=== PATIENT | female | born 1955 | race Caucasian/White ===

== ENCOUNTER 2018-05-02 11:10 | Emergency (ER) | payer BC ==
[2018-05-02] MEDS ORDERED: NA CHLORIDE 0.9% 1,000 ML ONE (13:01)
[2018-05-02] MEDS ORDERED: MORPHINE 4 MG/ML SYR ONE (13:01)
[2018-05-02] MEDS ORDERED: ONDANSETRON 4 MG/2 ML VIAL ONE (13:01)
[2018-05-02] MEDS ORDERED: KETOROLAC 30 MG/ML INJ ONE (13:18)
[2018-05-02 13:27] LABS: Absolute Lymphocytes (CBC) 3.1 K/uL (0.7-4.9); Absolute Monocytes 0.7 K/uL (0.1-1.3); Absolute Neutrophil 7.9 K/uL (1.8-8.0); Basophils % 0.7 % (0-1.3); Eosinophils % 0.6 % (0-4.4); Hematocrit 46.5 % (36.0-45.0); Lymphocytes % 26.1 % (15.3-44.8); MCH 31.9 pg (27.0-35.0); MCV 92.2 fL (80-100); MPV 7.6 fL (7.6-11.3); Monocytes % 5.5 % (3.3-12.3); RBC Red Blood Cell Count 5.04 M/uL (3.86-4.86)
[2018-05-02 13:58] LABS: ALT/SGPT 29 U/L (12-78); AST/SGOT 20 U/L (15-37); Albumin 4.3 g/dL (3.4-5.0); Alkaline Phosphatase 79 U/L (45-117); Amylase Level 53 U/L (25-115); BUN Blood Urea Nitrogen 21 mg/dL (7-18); Bicarbonate 26 mmol/L (21-32); Bilirubin Direct < 0.1 mg/dL (0-0.2); Bilirubin Total 0.4 mg/dL (0.2-1.0); Glucose Level 106 mg/dL (74-106); Lipase 172 U/L (73-393); Potassium 3.9 mmol/L (3.5-5.1); Protein, Total 7.9 g/dL (6.4-8.2); Sodium Level 141 mmol/L (136-145)
--- NOTE | 2018-05-02 14:18 | RAD REPORT ---
EXAM DESCRIPTION: CT - Stone Protocol - 05/02/2018 1:42 pm CLINICAL HISTORY: Abdominal pain, vaginal pain, bleeding, pain primarily left lower quadrant, prior hysterectomy COMPARISON: None. TECHNIQUE: Axial 5 mm thick images were obtained without oral or IV contrast. The [id number] span s the entirety of the system including uppermost abdomen and lung bases. All CT scans are performed using dose optimization technique as appropriate and may include automated exposure control or mA/KV adjustment according to patient size. FINDINGS: Mild left-sided hydronephrosis is present secondary to a 3 mm stone at the left UVJ. No ot her obstructing or nonobstructing calculi. No right-sided hydronephrosis. No suspicious renal masses. Isodense masses and pyelonephritis are not excluded on a stone protocol CT scan. Partially filled ur inary bladder shows no suspicious finding. Uterus is absent. Ovaries are absent or atrophic. Imaged portions of the liver, spleen and pancreas show no suspicious findings on non-contrast imaging . No gallbladder or biliary tree abnormality identified. No significant adrenal finding. No suspicious bowel findings. Appendix is normal. Mild to moderate sigmoid diverticulosis present wit hout diverticulitis. A small periumbilical fat only hernia is present. No mass or bulky lymphadenopathy. No free air, free fluid or inflammatory stranding. No significant bony abnormality. IMPRESSION: Mild left-sided hydronephrosis secondary to a 3 mm left UVJ calculus. Isodense masses and pyelonephritis are not excluded on stone protocol technique.
[2018-05-02 14:19] LABS: Urine Blood 2+ (NEG); Urine Glucose NEGATIVE (NEG); Urine Protein NEGATIVE (NEG); Urine pH 5.5 (5.0-7.0)
[2018-05-02 14:20] LABS: Calcium Oxalate Crystals- Ur FEW (NONE SEEN); Urine Bacteria <20 /HPF (<20); Urine Culture Reflex Order NOT NEEDED
[2018-05-02] MEDS ORDERED: TAMSULOSIN 0.4 MG SR CAP ONE (15:36)
[2018-05-02] MEDS ORDERED: FENTANYL CITR 100 MCG/2 ML ONE (15:44)
--- NOTE | 2018-05-02 16:09 | ER ---
Nurse's Notes [facility] Name: Viv Rivera Age: 63 yrs Sex: Female : 1955 Arrival Date: 05/02/2018 Time: 11:12 Bed 26 Private MD: Out, [facility] Diagnosis: Calculus of ureter Presentation: 05/02 11:48 Presenting complaint: Patient states: Sharp pain in vagina last night followed by brief aj episode of vaginal bleeding that has stopped. Patient reports pain has moved to LLQ. Reports urinary urgency with burning. Transition of care: patient was not received from another setting of care. Onset of symptoms was May 01, 2018. Risk Assessment: Do you want to hurt yourself or someone else? Patient reports no desire to harm self or others. Initial Sepsis Screen: Does the patient meet any 2 criteria? No. Patient's initial sepsis screen is negative. Does the patient have a suspected source of infection? No. Patient's initial sepsis screen is negative. Care prior to arrival: None. 11:48 Method Of Arrival: Ambulatory aj 11:48 Acuity: VIJAYA 3 aj Triage Assessment: 11:50 General: Appears in no apparent distress. uncomfortable, Behavior is calm, cooperative, aj appropriate for age. Pain: Complains of pain in left lower quadrant Pain currently is 8 out of 10 on a pain scale. Neuro: Level of Consciousness is awake, alert, obeys commands, Oriented to person, place, time, situation, Appropriate for age. Respiratory: Airway is patent Trachea midline Respiratory effort is even, unlabored, Respiratory pattern is regular, symmetrical. : Reports burning with urination, urinary frequency, vaginal bleeding that is. Derm: Skin is intact, is healthy with good turgor, Skin is pink, warm \T\ dry. normal. Historical: - Allergies: 11:50 No Known Allergies; aj - Home Meds: 11:50 Estradiol Oral [Active]; amlodipine oral [Active]; aj - PMHx: 11:50 Hypertension; Asthma; aj - PSHx: 11:50 Hysterectomy; aj - Immunization history:: Adult Immunizations up to date. - Social history:: Smoking status: Patient/guardian denies using tobacco. - Ebola Screening: : Patient negative for fever greater than or equal to 101.5 degrees Fahrenheit, and additional compatible Ebola Virus Disease symptoms Patient denies exposure to infectious person Patient denies travel to an Ebola-affected area in the 21 days before illness onset No symptoms or risks identified at this time. Screenin:40 Abuse screen: Denies threats or abuse. Nutritional screening: No deficits noted. tw2 Tuberculosis screening: No symptoms or risk factors identified. Fall Risk None identified. Assessment: 12:30 General: Appears uncomfortable, Behavior is calm, cooperative, appropriate for age. tw2 Pain: Complains of pain in left lower quadrant Pain radiates to back. Neuro: Level of Consciousness is awake, alert, obeys commands, Oriented to person, place, time, situation. Cardiovascular: Denies chest pain, shortness of breath, Heart tones S1 S2 Capillary refill < 3 seconds. Respiratory: Airway is patent Respiratory effort is even, unlabored, Respiratory pattern is regular, symmetrical, Breath sounds are clear bilaterally. GI: Abdomen is round non-distended, obese, Pt is actively vomiting bile, Bowel sounds present X 4 quads. Reports nausea. : Reports burning with urination, pain in right flank(s), in lower back urinary frequency. : Reports burning with urination. EENT: No signs and/or symptoms were reported regarding the EENT system. Derm: No signs and/or symptoms reported regarding the dermatologic system. Musculoskeletal: No signs and/or symptoms reported regarding the musculoskeletal system. Circulation, motion, and sensation intact. Range of motion: intact in all extremities. 13:53 Reassessment: Patient appears in no apparent distress at this time. Patient and/or tw2 family updated on plan of care and expected duration. Pain level reassessed. Patient is alert, oriented x 3, equal unlabored respirations, skin warm/dry/pink. Patient states feeling better. Patient states symptoms have improved. 15:04 Reassessment: Patient appears in no apparent distress at this time. Patient and/or tw2 family updated on plan of care and expected duration. Pain level reassessed. Patient is alert, oriented x 3, equal unlabored respirations, skin warm/dry/pink. Patient states feeling better. Patient states symptoms have improved. 15:52 Reassessment: Patient appears in no apparent distress at this time. Patient and/or tw2 family updated on plan of care and expected duration. Pain level reassessed. Patient is alert, oriented x 3, equal unlabored respirations, skin warm/dry/pink. 16:53 Reassessment: Patient appears in no apparent distress at this time. Patient and/or tw2 family updated on plan of care and expected duration. Pain level reassessed. Patient is alert, oriented x 3, equal unlabored respirations, skin warm/dry/pink. Patient states feeling better. Patient states symptoms have improved. Vital Signs: 11:50 BP 154 / 74; Pulse 80; Resp 15; Temp 97.9; Pulse Ox 99% on R/A; Weight 86.18 kg; Height aj 5 ft. 4 in. (162.56 cm); 12:30 BP 154 / 97; Pulse 72; Resp 18; Pulse Ox 99% on R/A; Pain 10/10; tw2 13:52 BP 160 / 73; Pulse 73; Resp 18; Pulse Ox 98% ; Pain 7/10; tw2 15:01 BP 153 / 85; Pulse 77; Resp 17; Pulse Ox 99% on R/A; tw2 15:51 BP 173 / 75; Pulse 75; Resp 17; Pulse Ox 100% on R/A; tw2 16:52 BP 160 / 86; Pulse 72; Resp 17; Pulse Ox 99% on R/A; tw2 11:50 Body Mass Index 32.61 (86.18 kg, 162.56 cm) ED Course: 11:12 Patient arrived in ED. mr 11:13 Out, [facility] is Private Physician. mr 11:49 Triage completed. aj 11:50 Arm band placed on right wrist. Patient placed in waiting room, Patient notified of wait time. 12:30 Blas Littlejohn PA is PHCP. [facility] 12:30 Panda Pratt MD is Attending Physician. [facility] 12:30 Bed in low position. Call light in reach. Side rails up X 1. Pulse ox on. NIBP on. Cool tw2 cloth applied. 12:55 Inserted saline lock: 22 gauge in left antecubital area, using aseptic technique. Blood tw2 collected. 13:14 Shani Ward, DESTINEE is Primary Nurse. tw2 14:13 CT Stone Protocol In Process Unspecified. EDMS 15:41 Awaiting: completion of IV fluids prior to discharge, and awaiting to arrive tw2 before IV Fentanyl administration, provider notified. 16:08 Michelle Espana MD is Referral Physician. jmm 16:29 Awaitin min observation after fentanyl prior to discharge. tw2 16:53 No provider procedures requiring assistance completed. IV discontinued, intact, tw2 bleeding controlled, No redness/swelling at site. Pressure dressing applied. Administered Medications: 12:55 Drug: Zofran 4 mg Route: IVP; Site: left antecubital; tw2 13:10 Follow up: Response: No adverse reaction; Nausea is decreased tw2 12:57 Drug: morphine 4 mg Route: IVP; Site: left antecubital; tw2 13:10 Follow up: Response: No adverse reaction; No change in condition; Pain is unchanged, tw2 physician notified 13:00 Drug: NS 0.9% 1000 ml Route: IV; Rate: 1 bolus; Site: left antecubital; tw2 16:06 Follow up: Response: No adverse reaction; IV Status: Completed infusion; IV Intake: tw2 1000ml 13:14 Drug: Ketorolac 30 mg Route: IVP; Site: left antecubital; tw2 14:00 Follow up: Response: No adverse reaction; Pain is decreased tw2 15:33 Drug: Flomax 0.4 mg Route: PO; tw2 15:55 Follow up: Response: No adverse reaction tw2 16:25 Drug: fentaNYL (PF) 50 mcg Route: IVP; Site: left antecubital; tw2 16:52 Follow up: Response: No adverse reaction; Pain is decreased tw2 Intake: 16:06 IV: 1000ml; Total: 1000ml. tw2 Outcome: 16:08 Discharge ordered by . [facility] 16:53 Discharged to home via wheelchair, with significant other. tw2 16:53 Condition: stable 16:53 Discharge instructions given to patient, significant other, Instructed on discharge instructions, follow up and referral plans. no drinking with medication, no driving heavy equipment, medication usage, Demonstrated understanding of instructions, follow-up care, medications, Prescriptions given X 3. 16:54 Patient left the ED. tw2 Signatures: Dispatcher [employer] EDCharmaine Tran, RN Blas Rivers PA PA jmm Rivera, Maria mr Wise, Tara, RN RN tw2
--- NOTE | 2018-05-02 16:09 | EDPHYS ---
Physician Documentation [facility] Name: Viv Rivera Age: 63 yrs Sex: Female : 1955 Arrival Date: 05/02/2018 Time: 11:12 Bed 26 Private MD: Out, [facility] ED Physician Panda Pratt HPI: 05/02 12:50 This 63 yrs old Female presents to ER via Ambulatory with complaints of jmm Vaginal Pain, Vaginal Bleeding, Abdominal Pain. 12:50 The patient presents with urinary symptoms, hematuria. Onset: The symptoms/episode jmm began/occurred gradually, last night. Modifying factors: The symptoms are alleviated by nothing, the symptoms are aggravated by nothing. Associated signs and symptoms: Pertinent positives: abdominal pain. 12:56 This is a 63 year old female with a history of htn, asthma that presents to the ED with jmm lower abdominal pain. Patient states she noticed blood in the toilet upon urinating last night. Patient denies fever, vomiting, diarrhea. . Historical: - Allergies: 11:50 No Known Allergies; aj - Home Meds: 11:50 Estradiol Oral [Active]; amlodipine oral [Active]; aj - PMHx: 11:50 Hypertension; Asthma; aj - PSHx: 11:50 Hysterectomy; aj - Immunization history:: Adult Immunizations up to date. - Social history:: Smoking status: Patient/guardian denies using tobacco. - Ebola Screening: : Patient negative for fever greater than or equal to 101.5 degrees Fahrenheit, and additional compatible Ebola Virus Disease symptoms Patient denies exposure to infectious person Patient denies travel to an Ebola-affected area in the 21 days before illness onset No symptoms or risks identified at this time. ROS: 12:56 Constitutional: Negative for fever, chills, and weight loss, Cardiovascular: Negative jmm for chest pain, palpitations, and edema, Respiratory: Negative for shortness of breath, cough, wheezing, and pleuritic chest pain. 12:56 MS/Extremity: Negative for injury and deformity, Skin: Negative for injury, rash, and discoloration, Neuro: Negative for headache, weakness, numbness, tingling, and seizure. 12:56 Abdomen/GI: Positive for abdominal pain. 12:56 : Positive for hematuria. 12:56 All other systems are negative. Exam: 12:56 Head/Face: atraumatic. Chest/axilla: Normal chest wall appearance and motion. [facility] Cardiovascular: Regular rate and rhythm. No edema appreciated Respiratory: Normal respirations, no respiratory distress appreciated 12:56 Constitutional: The patient appears in no acute distress, alert, awake. 12:56 Abdomen/GI: Inspection: abdomen appears normal, Bowel sounds: normal, Palpation: soft, mild abdominal tenderness, in the left lower quadrant. 12:56 Back: ROM is normal. 12:56 Skin: Appearance: Color: normal in color. 12:56 Neuro: Orientation: is normal, Mentation: is normal, Memory: is normal. 12:56 Psych: Behavior/mood is pleasant, cooperative. Vital Signs: 11:50 BP 154 / 74; Pulse 80; Resp 15; Temp 97.9; Pulse Ox 99% on R/A; Weight 86.18 kg; Height aj 5 ft. 4 in. (162.56 cm); 12:30 BP 154 / 97; Pulse 72; Resp 18; Pulse Ox 99% on R/A; Pain 10/10; tw2 13:52 BP 160 / 73; Pulse 73; Resp 18; Pulse Ox 98% ; Pain 7/10; tw2 15:01 BP 153 / 85; Pulse 77; Resp 17; Pulse Ox 99% on R/A; tw2 15:51 BP 173 / 75; Pulse 75; Resp 17; Pulse Ox 100% on R/A; tw2 16:52 BP 160 / 86; Pulse 72; Resp 17; Pulse Ox 99% on R/A; tw2 11:50 Body Mass Index 32.61 (86.18 kg, 162.56 cm) MDM: 12:48 Patient medically screened. [facility] 16:08 Data reviewed: vital signs, nurses notes. Counseling: I had a detailed discussion with zandra the patient and/or guardian regarding: the historical points, exam findings, and any diagnostic results supporting the discharge/admit diagnosis, radiology results, the need for outpatient follow up, to return to the emergency department if symptoms worsen or persist or if there are any questions or concerns that arise at home. 16:43 Data reviewed: lab test result(s), radiologic studies, CT scan. Response to treatment: zandra the patient's symptoms have markedly improved after treatment. 05/02 13:09 Order name: Urine Dipstick--Ancillary (enter results); Complete Time: 14:21 eb 05/02 13:27 Order name: CBC with Automated Diff; Complete Time: 13:27 EDMS 05/02 13:57 Order name: Creatinine (Radiology Only); Complete Time: 13:59 EDMS 05/02 13:58 Order name: Basic Metabolic Panel; Complete Time: 13:59 EDMS 05/02 13:58 Order name: Liver (Hepatic) Function; Complete Time: 13:59 EDMS 05/02 13:58 Order name: Amylase Level; Complete Time: 13:59 EDMS 05/02 13:58 Order name: Lipase; Complete Time: 13:59 EDMS 05/02 12:49 Order name: IV Saline Lock; Complete Time: 13:15 [facility] 05/02 12:49 Order name: Labs collected and sent; Complete Time: 13:15 [facility] 05/02 12:49 Order name: Urine Dipstick-Ancillary (obtain specimen); Complete Time: 13:15 [facility] 05/02 13:11 Order name: CT Stone Protocol; Complete Time: 14:21 [facility] 05/02 14:08 Order name: Urine Microscopic Only; Complete Time: 14:21 EDMS Administered Medications: 12:55 Drug: Zofran 4 mg Route: IVP; Site: left antecubital; tw2 13:10 Follow up: Response: No adverse reaction; Nausea is decreased tw2 12:57 Drug: morphine 4 mg Route: IVP; Site: left antecubital; tw2 13:10 Follow up: Response: No adverse reaction; No change in condition; Pain is unchanged, tw2 physician notified 13:00 Drug: NS 0.9% 1000 ml Route: IV; Rate: 1 bolus; Site: left antecubital; tw2 16:06 Follow up: Response: No adverse reaction; IV Status: Completed infusion; IV Intake: tw2 1000ml 13:14 Drug: Ketorolac 30 mg Route: IVP; Site: left antecubital; tw2 14:00 Follow up: Response: No adverse reaction; Pain is decreased tw2 15:33 Drug: Flomax 0.4 mg Route: PO; tw2 15:55 Follow up: Response: No adverse reaction tw2 16:25 Drug: fentaNYL (PF) 50 mcg Route: IVP; Site: left antecubital; tw2 16:52 Follow up: Response: No adverse reaction; Pain is decreased tw2 Disposition: 05/02/18 16:08 Discharged to Home. Impression: Calculus of ureter. - Condition is Stable. - Discharge Instructions: Kidney Stones. - Prescriptions for Tylenol- Codeine #3 300-30 mg Oral Tablet - take 1 tablet by ORAL route every 6 hours As needed; 20 tablet. Flomax 0.4 mg Oral Capsule, Sust. Release 24 hr - take 1 capsule by ORAL route once daily 1/2 hour following the same meal each day; 30 capsule. Zofran ODT 4 mg Oral tablet,disintegrating - place 1 tablet by TRANSLINGUAL route every 4-6 hours; 30 tablet. - Medication Reconciliation Form, Thank You Letter, Antibiotic Education, Prescription Opioid Use form. - Follow up: Michelle Espana MD; When: 2 - 3 days; Reason: Recheck today's complaints, Continuance of care, Re-evaluation by your physician. Addendum: 05/05/2018 07:18 Co-signature as Attending Physician, Panda Pratt MD I agree with the assessment and c marino plan of care. Signatures: Dispatcher [employer] Charmaine Tran, RN RN Panda Saez MD MD cha Mickail, Joel, PA PA jmm Wise, Tara, RN RN tw2 Corrections: (The following items were deleted from the chart) 05/02 15:09 13:32 AMYLASE, SERUM+C.LAB.BRZ ordered. EDVA EDVA 15:09 13:32 BASIC METABOLIC PANEL+C.LAB.BRZ ordered. EDVA EDVA 15:09 13:32 CBC+H.LAB.BRZ ordered. EDVA EDMS 15:09 13:32 Creatinine for Radiology+C.LAB.BRZ ordered. EDVA EDMS 15:09 13:32 HEPATIC FUNCTION+C.LAB.BRZ ordered. EDVA EDMS 15:09 13:32 LIPASE+C.LAB.BRZ ordered. [facility] EDVA 15:10 13:32 UA MICROSCOPIC+U.LAB.BRZ ordered. [facility] EDVA 16:54 16:08 05/02/2018 16:08 Discharged to Home. Impression: Calculus of ureter. Condition is tw2 Stable. Forms are Medication Reconciliation Form, Thank You Letter, Antibiotic Education, Prescription Opioid Use. Follow up: Michelle Espana; When: 2 - 3 days; Reason: Recheck today's complaints, Continuance of care, Re-evaluation by your physician. zandra
== END 2018-05-02 16:54 | disposition home or self-care (01) ==
LOC: ER 11:10
DX: N20.1 Calculus of ureter (principal); I10 Essential (primary) hypertension; J45.909 Unspecified asthma, uncomplicated
CPT/HCPCS: 36415; 74176; 76377; 80048; 80076; 81003; 81015; 82150; 83690; 85025; 96361; 96374; 96375; 99284; J2405; J3010; J7030